=== PATIENT | female | born 1990 | race Caucasian/White ===

== ENCOUNTER 2023-04-27 16:47 | Emergency (ER) | payer BC, SELFPAY ==
[2023-04-27 16:59] VITALS: BP 117/84; PULSE 115; RESP 18; TEMP 37.5; O2SAT 98; BMI 21.0
--- NOTE | 2023-04-27 17:15 | ED.GENADULT ---
HPI - General Adult General Time Seen by Provider: 17:15 Date Seen: 04/27/23 Chief complaint: Fever Stated complaint: fever, body aches, cough Time Seen by Provider: 04/27/23 17:15 Source: patient, RN notes reviewed and old records reviewed History of Present Illness HPI narrative: 32-year-old female who comes in today with subjective fever, body aches, sore throat, cough, congestion for 2 days. Fatigue and body aches as well. No chest pain or breathing difficulty. No nausea, vomiting, diarrhea. Related Data Home Medications Medication Instructions Recorded Confirmed No Known Home Medications 04/27/23 04/27/23 Allergies Allergy/AdvReac Type Severity Reaction Status Date / Time No Known Drug Allergies Allergy Verified 04/27/23 17:02 Exam Narrative: Exam Narrative: General: Well-developed and well-nourished, no acute distress Head: Atraumatic and normocephalic Eyes: Pupils are equal reactive, extraocular motions intact, conjunctiva clear ENT: External nose and ears are normal, posterior pharynx without erythema or exudate Neck: No midline cervical tenderness, full spontaneous range of motion the neck, trachea midline, no adenopathy Heart: Tachycardic but regular rhythm no murmurs or thrills Lungs: Clear to auscultation bilaterally without wheezes or crackles Abdomen: Soft, nontender, nondistended with active bowel sounds Musculoskeletal: No tenderness, deformity, or edema Neurologic: Awake, alert, and oriented x3, no gross focal neurologic deficits, cranial nerves intact as tested Psych: Mood and affect are appropriate Skin: No rashes Const: Vital Signs, click to edit/add: Vital Signs - 24 hr 04/27/23 16:59 Temperature 99.5 F Pulse Rate [Right Pulse Oximeter] 115 H Respiratory Rate 18 Blood Pressure [Ri ght Upper Arm] 117/84 Pulse Oximetry 98 Oxygen Delivery Me thod Room Air Course Course ED Course: Patient seen examined, prior records reviewed. Patient comes in with upper respiratory symptoms for 2 days, labs ordered and independently interpreted by me with positive influenza A. COVID and RSV negative. Oxygen saturations normal, lungs are clear, patient is low risk for severe complications other than history of smoking. No evidence for superimposed bacterial pneumonia, sepsis at this time. Stable for discharge. Vital Signs Vital signs: Initial Vital Signs Temperature 99.5 F 04/27/23 16:59 Temperature Source Temporal Artery Scan 04/27/23 16:59 Pulse Rate 115 H 04/27/23 16:59 Respiratory Rate 18 04/27/23 16:59 Blood Pressure 117/84 04/27/23 16:59 Blood Pressure Mean 95 04/27/23 16:59 Blood Pressure Position Sitting 04/27/23 16:59 Pulse Oximetry 98 04/27/23 16:59 Oxygen Delivery Method Room Air 04/27/23 16:59 Vital Signs Temperature 99.5 F 04/27/23 16:59 Pulse Rate 115 H 04/27/23 16:59 Respiratory Rate 18 04/27/23 16:59 Blood Pressure 117/84 04/27/23 16:59 Pulse Oximetry 98 04/27/23 16:59 Oxygen Delivery Method Room Air 04/27/23 16:59 Temperature 99.5 F 04/27/23 16:59 Pulse Rate 115 H 04/27/23 16:59 Respiratory Rate 18 04/27/23 16:59 Blood Pressure 117/84 04/27/23 16:59 Pulse Oximetry 98 04/27/23 16:59 Oxygen Delivery Method Room Air 04/27/23 16:59 Medical Decision Making Lab Data Labs: Lab Results 04/27/23 Range/Units 16:55 SARS-CoV-2 (PCR) Negative SARS-CoV-2 (Negative) Influenza Type A (PCR) POSITIVE PCR FLU A A (Negative) Influenza Type B (PCR) Negative PCR FLU B (Negative) RSV (PCR) Negative PCR RSV (Negative) Discharge Plan Discharge Clinical Impression: Influenza A Patient Disposition: Home, Self-Care Condition: Stable Instructions: Influenza (DC) Additional Instructions: Lots of fluids and rest Tylenol and ibuprofen for fever, body ache Activity Level: No Restrictions Discharge Diet: Regular Prescriptions: No Action No Known Home Medications Stand Alone Forms: MyHealth Info Instructions
[2023-04-27 17:48] LABS: PCR FLU A POSITIVE PCR FLU A (Negative); PCR FLU B Negative PCR FLU B (Negative); PCR RSV Negative PCR RSV (Negative); SARS PCR* Negative SARS-CoV-2 (Negative)
[2023-04-27 18:02] VITALS: PULSE 96; RESP 16; O2SAT 100
== END 2023-04-27 18:28 | disposition home or self-care (01) ==
LOC: ED 18:15
PROVIDERS: Emergency Provider Family Medicine
DX: J10.1 Influenza due to other identified influenza virus with other respiratory manifestations (principal)
CPT/HCPCS: 87631; 99282; 99283; 99284

== ENCOUNTER 2025-02-23 13:49 | Outpatient (CLI) | payer BC, SELFPAY ==
--- NOTE | 2025-02-23 14:00 | CRLHL7_ITS ---
For Patients: As a result of the Cures Act, medical imaging exams and procedure reports are released immediately into your electronic medical record. You may view this report before your referring provider. If you have questions, please contact your health care provider. OB ULTRASOUND INDICATION: Dating and viability. TECHNIQUE: Real time grayscale imaging of the fetus was performed. Transvaginal. Transvaginal imaging performed to better demonstrate the endometrium and ovaries. LMP: 12/25/2024. PAMELA by LMP: 10/01/2025. GA: 8 w, 4 d. Baby A: CRL: 2.1 cm. 8 w 5 d. PMAELA: 09/30/2025. FHR: 178 BPM. Gestational sac: 3.3 cm. Appears within normal limits. Yolk sac: 4.3 mm. Appears within normal limits. Baby B: CRL: N/A. FHR: N/A. Gestational sac: 1.7 cm. Yolk sac: 3.7 mm. Right ovary: 3.8 x 1.9 x 2.4 cm. CL. Left ovary: 3.2 x 2.1 x 2.9 cm. IMPRESSION: 1. Di-amniotic/di-chorionic twin is present. There is one living pole which measures 8 weeks 5 days and sonographic due date 09/30/2025. The other gestational sac measures 1.7 cm, 6 weeks 4 days with a 3.7 mm yolk sac. No second pole is present. 2. There are two subchorionic hemorrhages measuring 1.8 x 1.1 x 2.7 cm and 1.8 x 1.0 x 0.6 cm. 3. 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 Michael Johnson M.D. Diagnostic Radiologist [email or web address] KYLEE/perry amador/Dictated by: Michael Johnson MD @ 02/23/2025 4:08:00 PM (Electronically Signed)
== END 2025-02-23 13:50 | disposition home or self-care (01) ==
LOC: US 13:49
PROVIDERS: Visit Provider Advanced Practice Midwife
DX: O30.041 Twin pregnancy, dichorionic/diamniotic, first trimester (principal); O20.9 Hemorrhage in early pregnancy, unspecified; O99.891 Other specified diseases and conditions complicating pregnancy; D27.1 Benign neoplasm of left ovary; Z3A.08 8 weeks gestation of pregnancy
CPT/HCPCS: 76817

== ENCOUNTER 2025-02-23 15:36 | Outpatient (CLI) | payer BC, SELFPAY | END 2025-02-23 15:37 | disposition home or self-care (01) | LOC: NFLDREF 15:37 | PROVIDERS: Visit Provider Advanced Practice Midwife | DX: Z34.91 Encounter for supervision of normal pregnancy, unspecified, first trimester (principal); Z3A.08 8 weeks gestation of pregnancy | CPT/HCPCS: 80306; 83020; 83021; 85660; 86592; 86703; 86704; 86706; 86762; 86787; 86803; 86850; 86900; 86901; 87086; 87340; 87491; 87591 ==